=== PATIENT | male | born 2000 | race Caucasian/White ===

== ENCOUNTER 2022-06-15 21:26 | Emergency (ER) | payer SELFPAY ==
[~2022-06-15] VITALS: Ht 172.7 cm; Wt 76.0 kg
[2022-06-15] MEDS ORDERED: HYDROCODONE/ACETAMINOPHEN 5/325MG TABLET PO STA (22:28)
[2022-06-16] MEDS ORDERED: IBUP-2029 MT (00:22)
[2022-06-16 01:01] VITALS: BP 111/68
== END 2022-06-16 00:44 | disposition home or self-care (01) ==
LOC: ER 21:26
DX: S63.501A Unspecified sprain of right wrist, initial encounter (principal); M54.2 Cervicalgia; V49.49XA Driver injured in collision with other motor vehicles in traffic accident, initial encounter; Y93.89 Activity, other specified; Y92.89 Other specified places as the place of occurrence of the external cause; Y99.8 Other external cause status; M25.551 Pain in right hip; J84.10 Pulmonary fibrosis, unspecified
CPT/HCPCS: 71045; 73110; 73130; 73560; 73610; 74176; 99284